=== PATIENT | female | born 1985 | race Caucasian/White ===

== ENCOUNTER 2020-09-24 16:56 | Emergency (ER) | payer OTHER ==
[~2020-09-24 16:56] MED LIST: BUPRENORPHINE HC8 MG SL; COLACE 100MG C100 MG PO; IBUPROFEN600 MG PO; K-DUR TAB 20 M20 MEQ PO; KEFLEX CAP 500500 MG PO; KEFLEX500 MG PO; LABETALOL HCL100 MG PO; MEDROL4 MG PO; MELATONIN1 MG PO; MIRALAX 119 GR119 GM PO; NORFLEX 100 MG100 MG PO; OMNICEF 300 MG300 MG PO; PROVENTIL HFA6.7 GM INH; SLEEP AID25 M1 PO; SUBUTEX 8 MG TAB8 MG PO; TRANDATE 100 M100 MG PO; VALTREX 500 MG500 MG PO; VITAMIN B-625 MG PO; ZOFRAN4 MG PO; ZOLOFT100 MG PO; [UNRECOGNIZED DRUG - REMARK]
[2020-09-24] MEDS ORDERED: MUCINEX1200 MG PO (21:43)
[2020-09-24] MEDS ORDERED: IBUPROFEN800 MG PO (21:43)
[2020-09-24] MEDS ORDERED: ONDANSETRON ODT4 MG SL (21:43)
[2020-09-24] MEDS ORDERED: PROAIR HFA8.5 GM INH (21:43)
[2020-09-25] MEDS ORDERED: ZOFRAN ODT 4 MG4 MG PO (23:56)
[2020-09-25] MEDS ORDERED: PHENERGAN 25 MG25 M1 PO (23:56)
[2020-09-25] MEDS ORDERED: AZITHROMYCIN250 MG PO (23:56)
== END 2020-09-25 01:10 | disposition home or self-care (01) ==
LOC: ER1 16:56
DX: Z23 Encounter for immunization (principal); U07.1 COVID-19; J45.909 Unspecified asthma, uncomplicated; I10 Essential (primary) hypertension; E66.9 Obesity, unspecified; Z90.49 Acquired absence of other specified parts of digestive tract; Z79.899 Other long term (current) drug therapy; J20.8 Acute bronchitis due to other specified organisms; E66.01 Morbid (severe) obesity due to excess calories
CPT/HCPCS: 71045; 99283; M0243; U0002

== ENCOUNTER 2020-09-25 20:20 | Emergency (ER) | payer OTHER ==
[~2020-09-25 20:20] MED LIST changes: +IBUPROFEN800 MG PO; +MUCINEX1200 MG PO; +ONDANSETRON ODT4 MG SL; +PROAIR HFA8.5 GM INH
[2020-09-25 22:31] LABS: BUN/CREATININE RATIO 6 (0-10)
[2020-09-25] MEDS ORDERED: AZITHROMYCIN250 MG PO (23:56)
[2020-09-25] MEDS ORDERED: PHENERGAN 25 MG25 M1 PO (23:56)
[2020-09-25] MEDS ORDERED: ZOFRAN ODT 4 MG4 MG PO (23:56)
== END 2020-09-26 00:30 | disposition home or self-care (01) ==
LOC: ER1 20:20
PROVIDERS: Physician Assistant
DX: U07.1 COVID-19 (principal); J12.82 Pneumonia due to coronavirus disease 2019; E87.6 Hypokalemia; F17.290 Nicotine dependence, other tobacco product, uncomplicated
CPT/HCPCS: 80048; 93005; 99284

== ENCOUNTER 2021-08-06 15:37 | Emergency (ER) | payer OTHER ==
[~2021-08-06 15:37] MED LIST changes: +AZITHROMYCIN250 MG PO; +PHENERGAN 25 MG25 M1 PO; +ZOFRAN ODT 4 MG4 MG PO
[2021-08-06 17:48] LABS: HEMOGLOBIN 12.4 gm/dl (12.3-15.3); RED BLOOD COUNT 4.17 M/UL (4.00-5.10)
[2021-08-06 18:19] LABS: BUN/CREATININE RATIO 16 (0-10)
== END 2021-08-06 18:55 | disposition home or self-care (01) ==
LOC: ER1 15:37
DX: J02.9 Acute pharyngitis, unspecified (principal); E87.6 Hypokalemia; I10 Essential (primary) hypertension; F17.200 Nicotine dependence, unspecified, uncomplicated; Z20.822 Contact with and (suspected) exposure to COVID-19
CPT/HCPCS: 0240U; 71045; 80053; 82550; 82553; 84484; 85025; 87081; 87880; 93005; 99284